=== PATIENT | female | born 1990 | race Two or more races ===

== ENCOUNTER → 2017-06-16 | Outpatient (CLI) | payer OTHER ==
[2017-06-16 16:01] LABS: HEMOGLOBIN 14.6 g/dL (12.2-16.2); LYMPH # 1.5 K/mm3 (0.7-4.5); LYMPH % 33.1 % (10-50.0)
[2017-06-16 17:18] LABS: BUN 12 mg/dL (7-18)
[2017-06-16 17:19] LABS: GFR (ESTIMATED) 101 ML/MIN (59-)
== END ==
LOC: LAB 15:43
PROVIDERS: Nurse Practitioner Family
DX: R53.83 Other fatigue (principal); E55.9 Vitamin D deficiency, unspecified